=== PATIENT | female | born 2000 | race Caucasian/White ===

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

== ENCOUNTER 2018-12-04 09:30 | Emergency (ER) | payer OTHER ==
[2018-12-04 09:36] VITALS: RESP 18
--- NOTE | 2018-12-04 10:09 | ED ---
Female Urogenital HPI - General Chief complaint: Vaginal Bleeding Stated complaint: 16 wks preg/vag bleeding Time Seen by Provider: 12/04/18 09:37 Source: patient, RN notes reviewed, old records reviewed Mode of arrival: ambulatory Limitations: no limitations - History of Present Illness Initial comments: Patient is a 18-year-old female, . She is approximately 16 weeks . She presents today for complaints of vaginal bleeding. She reports she's had a history of gestational diabetes and preeclampsia on her last . Patient states that her DIRECTOR INTERNAL AUDIT is Dr. Zavala. Patient states that she started to have some bleeding and has had fell approximately one pad since this morning. Patient complains of lower abdominal and back cramping pain. - Related Data Home Medications Medication Instructions Recorded Confirmed Crq-Xvsn-Yvizv Acid 1 cap PO DAILY 12/04/18 12/04/18 [-U Capsule (formulary)] Previous Rx's Medication Instructions Recorded Cephalexin [Keflex] 500 mg PO Q6HR 3 Days #12 cap 12/04/18 Allergies Allergy/AdvReac Type Severity Reaction Status Date / Time No Known Allergies Allergy Verified 12/04/18 10:40 Review of Systems ROS Statement: Those systems with pertinent positive or pertinent negative responses have been documented in the HPI. ROS Other: All systems not noted in ROS Statement are negative. Past Medical History Past Medical History: Asthma Additional Past Medical History / Comment(s): TMJ History of Any Multi-Drug Resistant Organisms: None Reported Past Surgical History: Ear Surgery Additional Past Surgical History / Comment(s): "tubes in ears at 9 months old" Past Psychological History: Anxiety, Depression Smoking Status: Never smoker Past Alcohol Use History: None Reported Past Drug Use History: None Reported General Exam - General Exam Comments Initial Comments: Patient is a 18-year-old female. Alert and oriented 3. No distress. Limitations: no limitations General appearance: alert, in no apparent distress Head exam: Present: atraumatic, normocephalic, normal inspection Eye exam: Present: normal appearance, PERRL, EOMI. Absent: scleral icterus, conjunctival injection, periorbital swelling ENT exam: Present: normal exam, mucous membranes moist Neck exam: Present: normal inspection. Absent: tenderness, meningismus, lymph adenopathy Respiratory exam: Present: normal lung sounds bilaterally. Absent: respiratory distress, wheezes, rales, rhonchi, stridor Cardiovascular Exam: Present: regular rate, normal rhythm, normal heart sounds. Absent: systolic murmur, diastolic murmur, rubs, gallop, clicks GI/Abdominal exam: Present: soft, normal bowel sounds. Absent: distended, tenderness, guarding, rebound, rigid External exam: Present: normal external exam Speculum exam: Present: vaginal bleeding ( reddish brown vaginal discharge.). Absent: normal speculum exam, vaginal discharge By manual exam: Present: normal by manual exam. Absent: cervical motion tenderness Extremities exam: Present: normal inspection, full ROM, normal capillary refill. Absent: tenderness, pedal edema, joint swelling, calf tenderness Back exam: Present: normal inspection Neurological exam: Present: alert, oriented X3, CN II-XII intact Psychiatric exam: Present: normal affect, normal mood Course Vital Signs 12/04/18 09:33 Temperature 98.0 F Pulse Rate 111 H Respiratory 18 Rate Blood Pressure 135/84 O2 Sat by Pulse 99 Oximetry - Reevaluation(s) Reevaluation #1: 12/04/18 12:31 Discussed the case with Dr. Wagoner at this time. Patient should be on modified bedrest. We'll put the Patient on Keflex for small UTI. Patient follows up tomorrow with Dr. zavala Medical Decision Making - Medical Decision Making 20-year-old female, . She is approximately 17 weeks . She presents today with vaginal bleeding times one day. Not after intercourse. On exam she does have some brown blood noted in vaginal vault. Cervix appears closed. No adnexal tenderness. Urinalysis did show some signs of infection. We'll start the Patient on Keflex. Ultrasound shows evidence of 17 weeks intrauterine with viable heart rate. There is evidence of a possible small subchorionic bleed measuring presenting August 5 0.7 cm. Patient case discussed with Dr. Blandon. She'll follow-up with her tomorrow in the office. On bedrest and placed on antibiotics for UTI. All questions answered return parameters were discussed. - Lab Data Result diagrams: 12/04/18 10:25 12/04/18 10:25 Lab Results 12/04/18 12/04/18 12/04/18 Range/Units 10:25 10:25 10:25 WBC (4.0-11.0) k/uL RBC (3.80-5.40) m/uL Hgb (11.4-16.0) gm/dL Hct (34.0-46.0) % MCV (80.0-100.0) fL MCH (25.0-35.0) pg MCHC (31.0-37.0) g/dL RDW (11.5-15.5) % Plt Count (150-450) k/uL Neutrophils % % Lymphocytes % % Monocytes % % Eosinophils % % Basophils % % Neutrophils # (1.3-7.7) k/uL Lymphocytes # (1.0-4.8) k/uL Monocytes # (0-1.0) k/uL Eosinophils # (0-0.7) k/uL Basophils # (0-0.2) k/uL PT (9.0-12.0) sec INR (<1.2) APTT (22.0-30.0) sec Sodium (137-145) mmol/L Potassium (3.5-5.1) mmol/L Chloride (98-107) mmol/L Carbon Dioxide (22-30) mmol/L Anion Gap mmol/L BUN (7-17) mg/dL Creatinine (0.52-1.04) mg/dL Est GFR (CKD-EPI)AfAm (>60 ml/min/1.73 sqM) Est GFR (CKD-EPI)NonAf (>60 ml/min/1.73 sqM) Glucose (74-99) mg/dL Calcium (8.4-10.2) mg/dL Urine Color Yellow Urine Appearance Cloudy H (Clear) Urine pH 6.0 (5.0-8.0) Ur Specific [place] 1.029 (1.001-1.035) Urine Protein Trace H (Negative) Urine Glucose (UA) Negative (Negative) Urine Ketones Negative (Negative) Urine Blood Moderate H (Negative) Urine Nitrite Negative (Negative) Urine Bilirubin Negative (Negative) Urine Urobilinogen 2.0 (<2.0) mg/dL Ur Leukocyte Esterase Large H (Negative) Urine RBC 1 (0-5) /hpf Urine WBC 19 H (0-5) /hpf Ur Squamous Epith Cells 18 H (0-4) /hpf Urine Bacteria Few H (None) /hpf Urine Mucus Many H (None) /hpf Trichomonas Ag (Rapid) Negative (Negative) Blood Type O Positive Blood Type Recheck [facility] 12/04/18 12/04/18 12/04/18 Range/Units 10:25 10:25 10:25 WBC 9.4 (4.0-11.0) k/uL RBC 4.38 (3.80-5.40) m/uL Hgb 12.6 (11.4-16.0) gm/dL Hct 36.5 (34.0-46.0) % MCV 83.3 (80.0-100.0) fL MCH 28.7 (25.0-35.0) pg MCHC 34.4 (31.0-37.0) g/dL RDW 13.7 (11.5-15.5) % Plt Count 305 (150-450) k/uL Neutrophils % 74 % Lymphocytes % 19 % Monocytes % 4 % Eosinophils % 1 % Basophils % 0 % Neutrophils # 6.9 (1.3-7.7) k/uL Lymphocytes # 1.8 (1.0-4.8) k/uL Monocytes # 0.4 (0-1.0) k/uL Eosinophils # 0.1 (0-0.7) k/uL Basophils # 0.0 (0-0.2) k/uL PT 9.3 (9.0-12.0) sec INR 0.8 (<1.2) APTT 23.9 (22.0-30.0) sec Sodium 138 (137-145) mmol/L Potassium 3.7 (3.5-5.1) mmol/L Chloride 108 H (98-107) mmol/L Carbon Dioxide 23 (22-30) mmol/L Anion Gap 7 mmol/L BUN 8 (7-17) mg/dL Creatinine 0.39 L (0.52-1.04) mg/dL Est GFR (CKD-EPI)AfAm >90 (>60 ml/min/1.73 sqM) Est GFR (CKD-EPI)NonAf >90 (>60 ml/min/1.73 sqM) Glucose 77 (74-99) mg/dL Calcium 9.1 (8.4-10.2) mg/dL Urine Color Urine Appearance (Clear) Urine pH (5.0-8.0) Ur Specific Whit[place] (1.001-1.035) Urine Protein (Negative) Urine Glucose (UA) (Negative) Urine Ketones (Negative) Urine Blood (Negative) Urine Nitrite (Negative) Urine Bilirubin (Negative) Urine Urobilinogen (<2.0) mg/dL Ur Leukocyte Esterase (Negative) Urine RBC (0-5) /hpf Urine WBC (0-5) /hpf Ur Squamous Epith Cells (0-4) /hpf Urine Bacteria (None) /hpf Urine Mucus (None) /hpf Trichomonas Ag (Rapid) (Negative) Blood Type Blood Type Recheck - Radiology Data Radiology results: report reviewed Single viable and she had her with ultrasound age of 17 weeks and 0 days. Delivery date 05/14/2019. Fundal region near the tip of the placenta possible membrane or [place] marginal area of fluid representing 3.3 cm in length and 0.7 cm in depth. Disposition Clinical Impression: UTI in , Subchorionic bleed Disposition: HOME SELF-CARE Condition: Good Instructions (If sedation given, give patient instructions): Threatened Miscarriage (ED) Additional Instructions: Patient should be on bed rest except for getting up to go to the bathroom. Patient should have follow-up with Dr. Zavala tomorrow. Return to the emergency department if any alarming signs or symptoms occur. Prescriptions: Cephalexin [Keflex] 500 mg PO Q6HR 3 Days #12 cap Is patient prescribed a controlled substance at d/c from ED?: No Referrals: Conor Mancini MD [Primary Care Provider] - 1-2 days Kellie Zavala DO [Doctor of Osteopathic Medicine] - 1-2 days Time of Disposition: 12:33
[2018-12-04 10:38] LABS: Basophils % (A) 0 %; Eosinophils # (A) 0.1 k/uL (0-0.7); Eosinophils % (A) 1 %; HCT 36.5 % (34.0-46.0); HGB 12.6 gm/dL (11.4-16.0); Lymphocytes # (A) 1.8 k/uL (1.0-4.8); Lymphocytes % (A) 19 %; MCH 28.7 pg (25.0-35.0); MCHC 34.4 g/dL (31.0-37.0); MCV 83.3 fL (80.0-100.0); Monocytes # (A) 0.4 k/uL (0-1.0); Monocytes % (A) 4 %; Neutrophils # (A) 6.9 k/uL (1.3-7.7); Neutrophils % (A) 74 %; Platelet Count 305 k/uL (150-450); RBC 4.38 m/uL (3.80-5.40); RDW 13.7 % (11.5-15.5); WBC 9.4 k/uL (4.0-11.0)
[2018-12-04 10:47] LABS: Appearance,Urine Cloudy (Clear); Bacteria,Urine Few /hpf; Bilirubin,Urine Negative (Negative); Blood,Urine Moderate (Negative); Color,Urine Yellow; Glucose,Urine (UA) Negative (Negative); Ketones,Urine Negative (Negative); Leukocyte Esterase,Urine Large (Negative); Mucus,Urine Many /hpf; Nitrite,Urine Negative (Negative); Protein,Urine Trace (Negative); RBC,Urine 1 /hpf (0-5); Specific Gravity,Urine 1.029 (1.001-1.035); Squamous Epithelial Cell,Urine 18 /hpf (0-4); WBC,Urine 19 /hpf (0-5)
[2018-12-04 10:51] LABS: African American GFR (CKD) >90 (>60 ml/min/1.73 sqM); Anion Gap 7 mmol/L; Blood Urea Nitrogen 8 mg/dL (7-17); Calcium 9.1 mg/dL (8.4-10.2); Carbon Dioxide 23 mmol/L (22-30); Chloride 108 mmol/L (98-107); Glucose 77 mg/dL (74-99); INR 0.8 (<1.2); Partial Thromboplastin Time 23.9 sec (22.0-30.0); Potassium 3.7 mmol/L (3.5-5.1); Prothrombin Time 9.3 sec (9.0-12.0); Sodium 138 mmol/L (137-145)
--- NOTE | 2018-12-04 11:29 | US ---
EXAMINATION TYPE: US OB >= 14 wk fetus DATE OF EXAM: 12/04/2018 COMPARISON: None CLINICAL HISTORY: Pain, bleeding Patient states having spotting since today, TECHNIQUE: Transabdominal (TA) GESTATIONAL AGE / DATING Physician Established: (16 weeks/1 days) EDC: 05/20/2019 Dates by Current Scan: (17 weeks/0 days) EDC: 05/14/2019 SURVEY IUP: Single PLACENTA: Posterior PREVIA: No Previa LYDIA: 11.8 cm Normal CERVICAL LENGTH (transabdominal: norm > 3.0cm): 3.4 cm BIOMETRY PRESENTATION: Vertex BPD: 3.7 cm 17 weeks / 2 days HC: 13.4 cm 16 weeks / 6 days AC: 11.3 cm 17 weeks / 0 days FL: 2.2 cm 16 weeks / 3 days ESTIMATED WEIGHT IN GRAMS: 169.9 grams ESTIMATED WEIGHT IN LBS/OZ: 0 lbs. 6 oz. WEIGHT PERCENTAGE BASED ON ESTABLISHED DATES: 84.3% HC/AC: 1.2 Normal FL/AC: 16.2 Normal HEART RATE: 148 bpm RHYTHM: Normal Single live IUP measuring 17 weeks 0 days. In fundal region near tip of placenta, possible membrane o r small marginal area of fluid present measuring 3.3 cm in length by 0.7 cm in depth IMPRESSION: Single viable intrauterine corresponding to ultrasound age 17 weeks 0 days with estimated d elivery 05/14/2019. Placental margin abnormality is described.
[2018-12-04] MEDS ORDERED: CEPHALEXIN 500MG STARTER PACK 4 CAP BTL PO STA (12:35)
[2018-12-04 12:48] VITALS: BP 130/77; PULSE 96; TEMP 99.1
[2018-12-05 13:36] LABS: C. trachomatis,PCR Negative (Neg,Equiv); Chlamydia trachomatis Source Vagina
[2018-12-05 13:42] LABS: N. gonorrhoeae,PCR Negative (Neg,Equiv); Neisseria Source Vagina
== END 2018-12-04 12:49 | disposition home or self-care (01) ==
LOC: EC 09:30
DX: O20.8 Other hemorrhage in early pregnancy (principal); O23.42 Unspecified infection of urinary tract in pregnancy, second trimester; Z3A.17 17 weeks gestation of pregnancy
CPT/HCPCS: 36415; 76805; 80048; 81001; 85025; 85610; 85730; 86900; 86901; 87070; 87205; 87491; 87591; 87808; 99284

== ENCOUNTER 2019-04-01 14:40 | Outpatient (CLI) | payer OTHER ==
[2019-04-01 15:04] LABS: Glucose,Whole Blood 80 mg/dL (75-99)
[2019-04-01] MEDS: LACTATED RINGERS 1,000 ML IV ONE ×2 (15:35→16:23)
[2019-04-01 15:39] LABS: Amorphous Sediment,Urine Rare /hpf; Appearance,Urine Clear (Clear); Bacteria,Urine Occasional /hpf; Bilirubin,Urine Negative (Negative); Blood,Urine Negative (Negative); Color,Urine Yellow; Glucose,Urine (UA) Negative (Negative); Ketones,Urine 1+ (Negative); Leukocyte Esterase,Urine Moderate (Negative); Mucus,Urine Occasional /hpf; Nitrite,Urine Negative (Negative); Protein,Urine Negative (Negative); RBC,Urine 1 /hpf (0-5); Specific Gravity,Urine 1.013 (1.001-1.035); Squamous Epithelial Cell,Urine 2 /hpf (0-4); Urobilinogen,Urine <2.0 mg/dL (<2.0); WBC,Urine 11 /hpf (0-5)
[2019-04-01 15:54] LABS: Basophils % (A) 0 %; Eosinophils % (A) 0 %; HGB 11.4 gm/dL (11.4-16.0); Hypochromasia Slight; Lymphocytes # (A) 0.8 k/uL (1.0-4.8); Lymphocytes % (A) 5 %; MCH 26.2 pg (25.0-35.0); MCHC 32.4 g/dL (31.0-37.0); MCV 80.8 fL (80.0-100.0); Mean Platelet Volume 7.2; Monocytes # (A) 0.7 k/uL (0-1.0); Monocytes % (A) 4 %; Neutrophils # (A) 14.9 k/uL (1.3-7.7); Neutrophils % (A) 88 %; Platelet Count 278 k/uL (150-450); Poikilocytosis Slight; RBC 4.33 m/uL (3.80-5.40); RDW 13.5 % (11.5-15.5); WBC 16.9 k/uL (4.0-11.0)
[2019-04-01 16:05] LABS: ALT 13 U/L (9-52); AST 17 U/L (14-36); African American GFR (CKD) >90 (>60 ml/min/1.73 sqM); Albumin 3.4 g/dL (3.5-5.0); Alkaline Phosphatase 150 U/L (38-126); Anion Gap 7 mmol/L; Blood Urea Nitrogen 5 mg/dL (7-17); Calcium 9.1 mg/dL (8.4-10.2); Carbon Dioxide 21 mmol/L (22-30); Chloride 107 mmol/L (98-107); Glucose 72 mg/dL (74-99); Non-African American GFR(CKD) >90 (>60 ml/min/1.73 sqM); Potassium 3.8 mmol/L (3.5-5.1); Sodium 135 mmol/L (137-145); Total Bilirubin 0.6 mg/dL (0.2-1.3); Total Protein 6.6 g/dL (6.3-8.2)
--- NOTE | 2019-04-01 16:41 | US ---
EXAMINATION TYPE: US OB BPP wo non-stress DATE OF EXAM: 04/01/2019 COMPARISON: NONE CLINICAL HISTORY: Decreased FM. maternal tachycardia EXAM PERFORMED: Transabdominal (TA) BPP PARAMETERS: PRESENTATION: Vertex LIE: Longitudinal?? HEART RATE: 153 bpm RHYTHM: Normal LYDIA: 20.3cm DIAPHRAGM IMAGED: yes BPP SCORIN. Breathin (1 episode of breathing of 30 second duration in 30 minutes of scanning time) 2. Movement: 2 (at least 3 discrete body movements in 30 minutes) 3. Tone: 2 (1 episode of active flexion/extension of limb) 4. LYDIA: 2 (LYDIA index > 5cm) TOTAL SCORE: 6 / 8 was in room for a total of 26 minutes, ended exam at 17:11 after not being able to achieve br eathing IMPRESSION: No breathing movements were seen during that time of the exam. There is normal amniotic fluid. Biophysical profile score is 6.
--- NOTE | 2019-04-01 16:45 | US ---
EXAMINATION TYPE: US OB >= 14 wk fetus DATE OF EXAM: 04/01/2019 COMPARISON: None CLINICAL HISTORY: 18 year-old female Complete; Decreased movement. Maternal tachycardia TECHNIQUE: OBTA FINDINGS: GESTATIONAL AGE / DATING Physician Established: (33 weeks/0 days) EDC: 05/20/2019 Dates by LMP: LMP unknown Dates by First Scan: (33 weeks/6 days) EDC: 05/14/2019 Dates by Current Scan: (36 weeks/1 days) (2 weeks 2 days more growth than expected as compared to 12/04) EDC: 04/28/2019 SURVEY IUP: Single PLACENTA: Posterior PREVIA: Unable to determine. LYDIA: 19.6 cm Normal CERVICAL LENGTH (transabdominal: norm > 3.0cm): not seen due to head shadowing and non distended blad jairo BIOMETRY PRESENTATION: Vertex LIE: Longitudinal BPD: 8.9 cm 36 weeks / 1 days HC: 32.5 cm 37 weeks / 0 days AC: 31.5 cm 35 weeks / 4 days FL: 6.9 cm 35 weeks / 5 days ESTIMATED WEIGHT IN GRAMS: 2751 grams ESTIMATED WEIGHT IN LBS/OZ: 6 lbs. 1 oz. WEIGHT PERCENTAGE BASED ON ESTABLISHED DATES: 98% HC/AC: 1.0 Normal FL/AC: 22 Normal HEART RATE: 153 bpm RHYTHM: Normal MATERNAL WALL MEASUREMENT: 4.0 cm from skin to anterior uterine wall (if exam limited due to body hab itus). Bell Staff notes: Large habitus which made sound beam penetration difficult IMPRESSION: 1. Single live intrauterine with the established gestational age of 33 weeks 0 days. Curren t ultrasound biometry places the child at 36 weeks 1 day. There has been 2 weeks 2 days more growth t monson expected as compared to 12/04/2018. 2. EFW currently at the 98th percentile. Continued follow-up recommended to exclude LGA or early macr osomia. 3. Additional follow-up as indicated: unable to clearly exclude marginal placenta previa on the provi ded images. Unable to assess cervical length due to shadowing from the baby's head. 4. Note that anatomy was not assessed on this emergent exam.
[2019-04-01 17:42] VITALS: BP 135/77; TEMP 98.2
[2019-04-01 17:43] VITALS: PULSE 126; RESP 16
--- NOTE | 2019-05-01 10:18 | P.MSEPDOC ---
Presenting Problems - Arrival Data Date of Arrival on Unit: 04/01/19 Time of Arrival on Unit: 14:40 Mode of Transport: Portable - Complaint OB-Reason for Admission/Chief Complaint: Syncope/Fainting Spell Medical History - Information : 3 Para: 1 Term: 1 : 0 Abortions: Spontaneous or Elective: 1 Number of Living Children: 1 - Gestational Age Gestational Age by DELGADO (wks/days): 33 Weeks and 0 Days Review of Systems - Review of Systems Constitutional: No problems Breast: No problems ENT: No problems Cardiovascular: No problems Respiratory: CLAUDIA Gastrointestinal: No problems Genitourinary: No problems Musculoskeletal: No problems Neurological: Fainting Skin: No problems Vital Signs - Temperature Temperature: 98.2 F Temperature Source: Oral - Pulse Right Sitting Pulse Oximetery Pulse Rate: 126 Pulse Assessment Method: Pulse Oximetry - Respirations Respiratory Rate: 16 Oxygen Delivery Method: Room Air O2 Sat by Pulse Oximetry: 100 - Blood Pressure Right Arm Sitting Blood Pressure: 135/77 Blood Pressure Mean: 96 Blood Pressure Source: Automatic Cuff Medical Screen Scoring (Pre) - Cervical Exam Dilation: Exam Deferred Effacement: Exam Deferred Membranes: Intact - Uterine Contractions Frequency: N/A Duration: N/A Intensity: N/A - Maternal Vital Signs Maternal Temperature: N/A Maternal Blood Pressure: N/A Signs of Preeclampsia: N/A Maternal Respirations: N/A - Maternal Trauma Maternal Trauma: N/A - Assessment - Baby A Baseline FHR: 160 Heart Rate - NICHD Category: Category I (Normal) = 0 NST: Reactive Position: N/A Station: N/A - Total Score - Baby A Total Score - Baby A: 0 - Total Score - Baby B Total Score - Baby B: 0 - Total Score - Baby C Total Score - Baby C: 0 - Level of Risk - Baby A Level of Risk - Baby A: Low (0-5) - Level of Risk - Baby B Level of Risk - Baby B: Low (0-5) - Level of Risk - Baby C Level of Risk - Baby C: Low (0-5) Physician Notification (Pre) - Physician Notified Physician Notified Date: 04/01/19 Physician Notified Time: 15:23 New Order Received: Yes - Notification Comment Comment: Grady gates\Dr. Carrero, advsd of pts c/o, 33 0/7, tachycardia, hx of tachycardia, takes metropolol daily, vomitted x 1, has not ate/drank today; rec'd orders for IV hydration, CBC, CMP, UA and Ultrasound. Physician Notification (Post) - Physician Notified Physician Notified Date: 04/01/19 Physician Notified Time: 17:20 Physician/Practitioner Notified:: Alise Spoke With: Alise New Order Received: Yes - Notification Comment Comment: Pt reports feeling less SOB, pulse down from 150-160 to 120-130, labs and US reviewed. Pt to be d/c home, off work today and tomorrow, follow up in office Th/Fri. Disposition - Disposition OB Disposition: Discharge to home, Written follow up instructions reviewed Discharge Date: 04/01/19 Discharge Time: 17:30 I agree with the RN Medical Screening Exam: Yes Risk & Benefit of care provided described in d/c instruction: Yes Diagnosis: OTHER SPECIFIED COMPLICATIONS OF LABOR AND DELIVERY
== END 2019-04-01 17:30 | disposition home or self-care (01) ==
LOC: FBPOP 14:40
PROVIDERS: ATTEND Obstetrics & Gynecology Obstetrics
DX: O75.89 Other specified complications of labor and delivery (principal); Z3A.33 33 weeks gestation of pregnancy
CPT/HCPCS: 59025; 76805; 76819; 80053; 81001; 85025; 96360; 96361; 99213; 99214

== ENCOUNTER 2019-04-18 12:58 | Outpatient (CLI) | payer OTHER ==
[2019-04-18] MEDS ORDERED: LACTATED RINGERS 1,000 ML IV SCH ×2 (13:30→15:45)
[2019-04-18 14:09] LABS: ALT 8 U/L (4-34); AST 17 U/L (14-36); African American GFR (CKD) >90 (>60 ml/min/1.73 sqM); Albumin 2.9 g/dL (3.5-5.0); Alkaline Phosphatase 123 U/L (38-126); Anion Gap 8 mmol/L; Blood Urea Nitrogen 7 mg/dL (7-17); Carbon Dioxide 21 mmol/L (22-30); Chloride 108 mmol/L (98-107); Glucose 104 mg/dL (74-99); Non-African American GFR(CKD) >90 (>60 ml/min/1.73 sqM); Potassium 3.7 mmol/L (3.5-5.1); Sodium 137 mmol/L (137-145); Total Bilirubin 0.5 mg/dL (0.2-1.3); Total Protein 5.8 g/dL (6.3-8.2)
[2019-04-18 15:03] LABS: Appearance,Urine Cloudy (Clear); Bacteria,Urine Many /hpf; Bilirubin,Urine Negative (Negative); Blood,Urine Negative (Negative); Color,Urine Yellow; Glucose,Urine (UA) Negative (Negative); Ketones,Urine Negative (Negative); Leukocyte Esterase,Urine Large (Negative); Mucus,Urine Many /hpf; Nitrite,Urine Negative (Negative); Protein,Urine Trace (Negative); RBC,Urine 3 /hpf (0-5); Specific Gravity,Urine 1.024 (1.001-1.035); Squamous Epithelial Cell,Urine 10 /hpf (0-4); WBC,Urine 21 /hpf (0-5)
[2019-04-18] MEDS ORDERED: METOPROLOL TARTRATE 25 MG TAB PO STA (15:45)
[2019-04-18 21:19] VITALS: BP 124/92; PULSE 150; RESP 18; TEMP 98.4
== END 2019-04-18 17:30 | disposition home or self-care (01) ==
LOC: FBPOP 12:58
PROVIDERS: ATTEND Obstetrics & Gynecology Obstetrics
DX: O99.89 Other specified diseases and conditions complicating pregnancy, childbirth and the puerperium (principal); R00.0 Tachycardia, unspecified; Z3A.00 Weeks of gestation of pregnancy not specified
CPT/HCPCS: 59025; 80053; 81001; 96360; 96361; 99214

== ENCOUNTER 2019-05-02 21:35 | Outpatient (CLI) | payer OTHER ==
[2019-05-02 23:03] VITALS: BP 133/83; PULSE 120; RESP 18; TEMP 97.6
--- NOTE | 2019-05-03 11:03 | P.MSEPDOC ---
Presenting Problems - Arrival Data Date of Arrival on Unit: 05/02/19 Time of Arrival on Unit: 21:35 Mode of Transport: Ambulatory - Complaint OB-Reason for Admission/Chief Complaint: Decreased Movement, Other Medical History - Information : 3 Para: 1 Term: 1 : 0 Abortions: Spontaneous or Elective: 1 Number of Living Children: 1 - Gestational Age Gestational Age by DELGADO (wks/days): 37 Weeks and 3 Days Review of Systems - Review of Systems Constitutional: No problems Breast: No problems ENT: Cough Cardiovascular: No problems Respiratory: Wheezing Gastrointestinal: No problems Genitourinary: No problems Musculoskeletal: No problems Neurological: No problems Skin: No problems Vital Signs - Temperature Temperature: 97.6 F Temperature Source: Temporal Artery Scan - Pulse Right Brachial Pulse Rate: 120 Pulse Assessment Method: Automatic Cuff - Respirations Respiratory Rate: 18 Oxygen Delivery Method: Room Air O2 Sat by Pulse Oximetry: 97 - Blood Pressure Right Arm Blood Pressure: 133/83 Blood Pressure Mean: 99 Blood Pressure Source: Automatic Cuff Medical Screen Scoring (Pre) - Cervical Exam Dilation: Exam Deferred Effacement: Exam Deferred Membranes: Intact - Uterine Contractions Frequency: N/A - Maternal Vital Signs Maternal Temperature: N/A Maternal Blood Pressure: N/A Signs of Preeclampsia: N/A Maternal Respirations: N/A - Maternal Trauma Maternal Trauma: N/A - Assessment - Baby A Baseline FHR: 140 Heart Rate - NICHD Category: Category I (Normal) = 0 NST: Reactive - Total Score - Baby A Total Score - Baby A: 0 - Total Score - Baby B Total Score - Baby B: 0 - Total Score - Baby C Total Score - Baby C: 0 - Level of Risk - Baby A Level of Risk - Baby A: Low (0-5) - Level of Risk - Baby B Level of Risk - Baby B: Low (0-5) - Level of Risk - Baby C Level of Risk - Baby C: Low (0-5) Physician Notification (Pre) - Physician Notified Physician Notified Date: 05/02/19 Physician Notified Time: 22:30 New Order Received: Yes - Notification Comment Comment: RN spoke with Dr. Arreola. Reported that patient had a reactive NST after. close to 40 minutes and with position changes. Patient has bilateral chest tightness and. audible wheeze. Patient currently on two inhalers from home and robitussin with no. relief. Dr. Arreola would like patient to be seen in ER. Patient updated on plan of. care and is in agreement. Disposition - Disposition OB Disposition: Transfer to other dept./facility Transferred to:: ER Discharge Date: 05/02/19 Discharge Time: 22:40 I agree with the RN Medical Screening Exam: Yes Risk & Benefit of care provided described in d/c instruction: Yes Diagnosis: RELATED CONDITIONS, UNSPECIFIED, THIRD TRIMESTER
== END 2019-05-02 22:40 ==
LOC: FBPOP 21:35
PROVIDERS: ATTEND Obstetrics & Gynecology
DX: O26.93 Pregnancy related conditions, unspecified, third trimester (principal); Z3A.37 37 weeks gestation of pregnancy
CPT/HCPCS: 59025; 99213

== ENCOUNTER 2019-05-02 22:43 | Emergency (ER) | payer OTHER ==
[2019-05-02 22:50] VITALS: RESP 18; TEMP 97.8
[2019-05-02] MEDS ORDERED: IPRATROPIUM-ALBUTEROL 3 ML NEB INHALATION STA (23:27)
[2019-05-02] MEDS ORDERED: predniSONE 20 MG TAB PO STA (23:27)
--- NOTE | 2019-05-03 00:26 | ED ---
URI HPI - General Chief Complaint: Upper Respiratory Infection Stated Complaint: cough/congestion Time Seen by Provider: 05/02/19 23:00 Source: patient Limitations: no limitations - History of Present Illness Initial Comments: Leatha is a 18-year-old female currently 37 weeks gestation who presents the ER from labor and delivery for evaluation of wheezing and URI symptoms. Patient has no complaints can feel the baby moving was evaluated on labor and delivery and they recommended trans-her back to the ER for evaluation of URI. Patient reports she has a history of reactive airway disease and asthma. She occasionally needs breathing treatments. She reports she's used some at home with minimal improvement which prompted her to the ER for further evaluation. P atient reports she's had nonproductive cough wheezing no fevers. Patient shortness of breath is exacerbated by the fact that she is term - Related Data Home Medications Medication Instructions Recorded Confirmed Jev-Oiyq-Ftyqx Acid 1 cap PO DAILY 12/04/18 05/02/19 [-U Capsule (formulary)] Iron 18 mg PO DAILY 04/01/19 05/02/19 Metoprolol Succinate [Kapspargo 25 mg PO BID 04/01/19 05/02/19 Sprinkle] Albuterol Inhaler [Ventolin Hfa 1 - 2 puff INHALATION RT-Q6H PRN 05/02/19 05/02/19 Inhaler] Beclomethasone Dipropionate [Qvar 1 puff INHALATION DIRECTED 05/02/19 05/02/19 40 mcg Redihaler] Previous Rx's Medication Instructions Recorded Ipratropium-Albuterol Nebulize 3 ml INHALATION Q6H #30 neb 05/03/19 [Duoneb 0.5 mg-3 mg/3 ml Soln] predniSONE [Deltasone] 40 mg PO DAILY 5 Days #10 tablet 05/03/19 Allergies Allergy/AdvReac Type Severity Reaction Status Date / Time No Known Allergies Allergy Verified 05/02/19 22:50 Review of Systems ROS Statement: Those systems with pertinent positive or pertinent negative responses have been documented in the HPI. ROS Other: All systems not noted in ROS Statement are negative. Past Medical History Past Medical History: Asthma Additional Past Medical History / Comment(s): TMJ History of Any Multi-Drug Resistant Organisms: None Reported Past Surgical History: Ear Surgery Additional Past Surgical History / Comment(s): "tubes in ears at 9 months old" Past Psychological History: Anxiety, Depression Smoking Status: Never smoker General Exam - General Exam Comments Initial Comments: Physical Exam GENERAL: Patient is well-developed and well-nourished. Patient is nontoxic and well- hydrated and is in no distress. HENT: Normocephalic, Atraumatic. EYES: PERRL, EOMI PULMONARY: Mild expiratory wheezing in all lung yadav Decreased diaphragmatic excursion secondary to CARDIOVASCULAR: There is a regular rate and rhythm without any murmurs gallops or rubs. ABDOMEN: Gravid SKIN: Skin is clear with no lesions or rashes and otherwise unremarkable. : Deferred NEUROLOGIC: Patient is alert and oriented x3. Moving all extremities spontaneously MUSCULOSKELETAL: Normal extremities with adequate strength and full range of motion. No lower extremity swelling or edema. No calf tenderness. PSYCHIATRIC: Normal psychiatric evaluation. Limitations: no limitations Course Vital Signs 05/02/19 05/03/19 05/03/19 22:47 00:28 00:37 Temperature 97.8 F Pulse Rate 118 H 108 H 100 Respiratory 18 Rate Blood Pressure 133/94 O2 Sat by Pulse 98 Oximetry 05/03/19 00:52 Temperature Pulse Rate 111 H Respiratory 18 Rate Blood Pressure 133/85 O2 Sat by Pulse 98 Oximetry Medical Decision Making - Medical Decision Making The patient was seen and evaluated history is obtained from the patient is a 37 week female presenting with wheezing Breathing treatment was ordered. Labs were ordered. Patient feeling much better after breathing treatment. Was negative for herself and her mother. Discussed possible chest x-ray however patient has improved breath sounds bilaterally after breathing treatment no fever no concern for pneumonia on clini tessy exam therefore patient's comfortable foregoing chest x-ray being discharged home with albuterol and steroids. All questions pertaining care were answered close return parameters were discussed importance of hydration was stressed and the patient was discharged home stable condition she will follow up with her Scale Balancer further care. - Lab Data Lab Results 05/02/19 Range/Units 23:52 Influenza Type A RNA Not Detected (Not Detectd) Influenza Type B (PCR) Not Detected (Not Detectd) Disposition Clinical Impression: Acute upper respiratory infection Disposition: HOME SELF-CARE Condition: Stable Instructions (If sedation given, give patient instructions): Upper Respiratory Infection (ED) Prescriptions: predniSONE [Deltasone] 40 mg PO DAILY 5 Days #10 tablet Ipratropium-Albuterol Nebulize [Duoneb 0.5 mg-3 mg/3 ml Soln] 3 ml INHALATION Q6H #30 neb Is patient prescribed a controlled substance at d/c from ED?: No Referrals: Conor Mancini MD [Primary Care Provider] - 1-2 days
[2019-05-03 00:53] VITALS: BP 133/85; PULSE 111
== END 2019-05-03 01:41 | disposition home or self-care (01) ==
LOC: EC 22:43
DX: O99.513 Diseases of the respiratory system complicating pregnancy, third trimester (principal); J06.9 Acute upper respiratory infection, unspecified; J45.909 Unspecified asthma, uncomplicated; Z3A.37 37 weeks gestation of pregnancy; Z79.899 Other long term (current) drug therapy
CPT/HCPCS: 94640; 87502; 99283; J7512

== ENCOUNTER 2019-05-13 06:00 | Inpatient (IN) | payer OTHER ==
[2019-05-13 06:29] VITALS: RESP 16
[2019-05-13] MEDS: LACTATED RINGERS 1,000 ML IV SCH ×2 (06:30→10:41)
[2019-05-13] MEDS ORDERED: TERBUTALINE 1 MG/ML VIAL SQ PRN (07:08)
[2019-05-13] MEDS ORDERED: LIDOCAINE 0.5% (PF) 5 MG/ML (50 ML SDV) SQ PRN (07:08)
[2019-05-13] MEDS ORDERED: OXYTOCIN 10 UNIT/ML 1 ML VIAL IM PRN (07:08)
[2019-05-13] MEDS ORDERED: CARBOPROST TROMETHAMINE 250 MCG/ML 1 ML AMP IM PRN (07:08)
[2019-05-13] MEDS ORDERED: METHYLERGONOVINE 0.2 MG/ML 1 ML AMP IM PRN (07:08)
[2019-05-13] MEDS ORDERED: OXYTOCIN 30 UNITS/500 ML NS 30 UNIT in SALINE 1 500ML.BAG IV SCH (07:15)
[2019-05-13 07:23] LABS: Basophils # (A) 0.1 k/uL (0-0.2); Basophils % (A) 1 %; Eosinophils # (A) 0.1 k/uL (0-0.7); Eosinophils % (A) 1 %; HCT 31.3 % (34.0-46.0); Hypochromasia Slight; Lymphocytes # (A) 2.4 k/uL (1.0-4.8); Lymphocytes % (A) 22 %; MCH 23.4 pg (25.0-35.0); MCHC 31.4 g/dL (31.0-37.0); Mean Platelet Volume 8.9; Microcytosis Slight; Monocytes # (A) 0.5 k/uL (0-1.0); Monocytes % (A) 4 %; Neutrophils # (A) 7.7 k/uL (1.3-7.7); Neutrophils % (A) 69 %; Platelet Count 301 k/uL (150-450); Poikilocytosis Slight; RDW 14.8 % (11.5-15.5); WBC 11.1 k/uL (4.0-11.0)
[2019-05-13 07:42] LABS: HGB 9.8 gm/dL (11.4-16.0); MCV 74.5 fL (80.0-100.0)
--- NOTE | 2019-05-13 08:00 | P.HPOB ---
History of Present Illness H&P Date: 05/13/19 Chief Complaint: IUP @ 39 0/7 weeks This is a 18-year-old 3 para 1011 at 39 0/7 weeks presents to labor and delivery for elective induction of labor. Patient has been receiving routine care which is been essentially uncomplicated. A arrhythmia was noted during a routine visit and echo was negative. Patient does have a past medical history of asthma and history of pre-[place] with her prior blood pressures of been normal this . On blood work shows a blood type of O+, rubella immune, hepatitis B surface antigen negative, RPR nonreactive, HIV negative, GBS negative. Review of Systems Constitutional: Denies chills, Denies fatigue, Denies fever Ears, nose, mouth and throat: Denies headache Cardiovascular: Reports leg edema Gastrointestinal: Denies nausea, Denies vomiting Genitourinary: Reports Past Medical History Past Medical History: Asthma Additional Past Medical History / Comment(s): TMJ History of Any Multi-Drug Resistant Organisms: None Reported Past Surgical History: Ear Surgery Additional Past Surgical History / Comment(s): "tubes in ears at 9 months old" Past Anesthesia/Blood Transfusion Reactions: No Reported Reaction Past Psychological History: Anxiety, Depression Smoking Status: Never smoker Past Alcohol Use History: None Reported Past Drug Use History: None Reported - Past Family History Mother Family Medical History: Pneumonia Medications and Allergies Home Medications Medication Instructions Recorded Confirmed Type Enw-Rmzv-Sqycd Acid 1 cap PO DAILY 12/04/18 05/13/19 History [-U Capsule (formulary)] Iron 18 mg PO DAILY 04/01/19 05/13/19 History Metoprolol Succinate [Kapspargo 25 mg PO BID 04/01/19 05/13/19 History Sprinkle] Albuterol Inhaler [Ventolin Hfa 1 - 2 puff INHALATION RT-Q6H PRN 05/02/19 05/13/19 History Inhaler] Beclomethasone Dipropionate [Qvar 1 puff INHALATION DIRECTED 05/02/19 05/13/19 History 40 mcg Redihaler] predniSONE [Deltasone] 40 mg PO DAILY 5 Days #10 tablet 05/03/19 05/13/19 Rx Allergies Allergy/AdvReac Type Severity Reaction Status Date / Time No Known Allergies Allergy Verified 05/13/19 06:31 Exam Osteopathic Statement: *. No significant issues noted on an osteopathic structural exam other than those noted in the History and Physical/Consult. 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 Heart has regular rate and rhythm, abdomen is gravid and appropriate for gestational age, positive +1 lower cavity edema is noted. heart tones were noted to be category 1 and she is contra cting every 5 minutes. On cervical exam she is 5/70/-2 station amniotomy is performed and clear fluid was obtained. Results Result Diagrams: 05/13/19 06:30 Abnormal Lab Results - Last 24 Hours (Table) 05/13/19 Range/Units 06:30 WBC 11.1 H (4.0-11.0) k/uL Hgb 9.8 L D (11.4-16.0) gm/dL Hct 31.3 L (34.0-46.0) % MCV 74.5 L D (80.0-100.0) fL MCH 23.4 L (25.0-35.0) pg Assessment and Plan (1) Term Current Visit: Yes Status: Acute Code(s): Z34.90 - ENCNTR FOR SUPRVSN OF NORMAL , UNSP, UNSP TRIMESTER SNOMED Code(s): 55802458 Plan: Patient is admitted to labor and delivery and Pitocin induction of labor was begun per hospital protocol. Patient is offered Stadol versus epidural for analgesia for discomfort in labor, patient declines. Anticipate spontaneous vaginal delivery later this morning.
[2019-05-13] MEDS ORDERED: fentaNYL (PF) 50 MCG/ML 5 ML AMP ONE (10:52)
[2019-05-13] MEDS ORDERED: ROPIVACAINE 5MG/ML 20ML VIAL ONE (10:52)
[2019-05-13] MEDS ORDERED: SODIUM CHLORIDE 0.9% 100 ML BAG ONE (10:52)
[2019-05-13] MEDS ORDERED: ROPIVACAINE 100 MG, fentaNYL (PF) 200 MCG in SODIUM CHLORIDE 0.9% 76 ML EPIDURAL ONE (14:19)
[2019-05-13] MEDS: OXYTOCIN 20 UNITS/1000 ML NS 1,000 ML IV SCH ×2 (15:35→16:33)
[2019-05-13] MEDS ORDERED: BENZOCAINE/MENTHOL SPRAY 1 GM/SPRAY AEROSOL TOPICAL PRN (15:52)
[2019-05-13] MEDS ORDERED: diphenhydrAMINE 50 MG CAP PO PRN (15:52)
[2019-05-13] MEDS ORDERED: SIMETHICONE 80 MG CHEWABLE PO PRN (15:52)
[2019-05-13] MEDS ORDERED: HYDROCORTISONE 2.5% RECTAL CREAM 30 GM TUBE RECTAL PRN (15:52)
[2019-05-13] MEDS ORDERED: diphenhydrAMINE 25 MG CAP PO PRN (15:52)
[2019-05-13] MEDS ORDERED: WITCH HAZEL 1 EACH MED..PAD TOPICAL PRN (15:52)
[2019-05-13] MEDS ORDERED: ZOLPIDEM 5 MG TAB PO PRN (15:52)
[2019-05-13] MEDS ORDERED: LANOLIN CREAM 5 GM TUBE TOPICAL PRN (15:52)
[2019-05-13] MEDS ORDERED: ACETAMINOPHEN TAB 325 MG TAB PO PRN (15:52)
[2019-05-13] MEDS ORDERED: diphenhydrAMINE 50 MG/ML 1 ML VIAL IVP PRN ×2 (15:52)
--- NOTE | 2019-05-13 15:55 | P.PROBDLV ---
Vaginal Delivery Note - . Vaginal Delivery Note: This is a maritza 18-year-old 2 para 1001 at 39 0/7 weeks that presented to labor and delivery for elective induction of labor. Patient was admitted Pitocin induction of labor was started per hospital protocol. Patient underwent amniotomy when she was 5 cm clear fluid was obtained. Patient became uncomfortable and requested epidural placement by the anesthesia . Patient progressed to complete began pushing and had a normal spent taste vaginal delivery of a viable female infant at 1532, weight of 9 lbs. 1 oz. or 4110 g with Apgars of 8 and 9 at one and 5 minutes respect weight. After a two- minute delayed the umbo cord was then doubly clamped and cut the placenta was delivered spontaneously intact with a three-vessel cord being noted. Inspection the patient's vaginal vault a second-degree midline laceration was noted therefore 3-0 repeat was used to repair this defect in the usual fashion. Hemostasis was appreciated the uterus is noted to be firm and below the umbilicus at this time. Rectal exam was performed and found to be normal in nature. Bleeding was noted to be normal in a straight blood loss for this delivery 300 mL. Patient and infant tolerated delivery well and are resting comfortably.
[2019-05-13] MEDS: IBUPROFEN 600 MG TAB PO PRN (20:34)
[2019-05-13] MEDS: SENNOSIDES-DOCUSATE SODIUM 1 EACH TAB PO SCH (20:34)
[2019-05-14 07:29] LABS: Basophils % (A) 0 %; Eosinophils # (A) 0.1 k/uL (0-0.7); Eosinophils % (A) 0 %; HCT 29.7 % (34.0-46.0); Hypochromasia Marked; Lymphocytes % (A) 19 %; MCH 24.5 pg (25.0-35.0); MCHC 30.4 g/dL (31.0-37.0); Mean Platelet Volume 7.3; Monocytes # (A) 0.9 k/uL (0-1.0); Monocytes % (A) 6 %; Neutrophils # (A) 11.5 k/uL (1.3-7.7); Neutrophils % (A) 72 %; Platelet Count 275 k/uL (150-450); Poikilocytosis Slight; RBC 3.68 m/uL (3.80-5.40); RDW 14.2 % (11.5-15.5)
[2019-05-14 07:41] LABS: MCV 80.7 fL (80.0-100.0)
--- NOTE | 2019-05-14 08:19 | P.DS ---
Providers Date of admission: 05/13/19 06:00 Expected date of discharge: 05/14/19 Attending physician: Kellie Carrero Primary care physician: Stated None - Discharge Diagnosis(es) (1) Term Current Visit: Yes Status: Acute (2) Status post normal vaginal delivery Current Visit: Yes Status: Acute (3) Second degree perineal laceration during delivery Current Visit: Yes Status: Acute Hospital Course: This pleasant 18-year-old 2 para 1001 presented to labor and delivery at 39-0/7 weeks for elective induction of labor. Patient was admitted and Pitocin induction of labor was begun per protocol. Patient has had a relatively uncomplicated with the exception of a arrhythmia which was noted on a routine visit echo was found to be normal. Patient progressed through labor amniotomy was performed after regular contractions were noted with Pitocin and clear fluid was obtained. Patient progressed to 7 became uncomfortable requested epidural placement. Epidural was placed by the anesthesia Department without difficulty. Patient progressed to complete began pushing and had a normal spontaneous vaginal delivery of a viable female infant at 1532, weight of 9 lbs. 1 oz. with Apgars of 8 and 9 at one and 5 minutes respectively. Patient did sustain a second-degree midline vaginal laceration which was repaired with 3-0 Rapide in the usual fashion. Patient's course has been uneventful. On this day #1 she is ambulating and voiding without difficulty. She is tolerating a regular diet without nausea or vomiting. She is breast-feeding without difficulty and is requesting a breast pump prescription prior to discharge. She would like discharge home at 24 hours Patient Condition at Discharge: Good Plan - Discharge Summary New Discharge Prescriptions: No Action Nmg-Ctui-Awbhl Acid [-U Capsule (formulary)] 1 cap PO DAILY Metoprolol Succinate [Kapspargo Sprinkle] 25 mg PO BID Iron 18 mg PO DAILY Albuterol Inhaler [Ventolin Hfa Inhaler] 1 - 2 puff INHALATION RT-Q6H PRN PRN Reason: Dyspnea Beclomethasone Dipropionate [Qvar 40 mcg Redihaler] 1 puff INHALATION DIRECTED predniSONE [Deltasone] 40 mg PO DAILY 5 Days #10 tablet Discharge Medication List Lzg-Gzpq-Noldm Acid [-U Capsule (formulary)] 1 cap PO DAILY 12/04/18 [History] Iron 18 mg PO DAILY 04/01/19 [History] Metoprolol Succinate [Kapspargo Sprinkle] 25 mg PO BID 04/01/19 [History] Albuterol Inhaler [Ventolin Hfa Inhaler] 1 - 2 puff INHALATION RT-Q6H PRN 05/02/19 [History] Beclomethasone Dipropionate [Qvar 40 mcg Redihaler] 1 puff INHALATION DIRECTED 05/02/19 [History] predniSONE [Deltasone] 40 mg PO DAILY 5 Days #10 tablet 05/03/19 [Rx] Follow up Appointment(s)/Referral(s): Kellie Carrero DO [Doctor of Osteopathic Medicine] - 4 Weeks Patient Instructions/Handouts: Vaginal Delivery (DC), Vaginal Delivery (GEN) Discharge Disposition: HOME SELF-CARE
[2019-05-14] MEDS: SENNOSIDES-DOCUSATE SODIUM 1 EACH TAB PO SCH (09:22)
[2019-05-14] MEDS: IBUPROFEN 600 MG TAB PO PRN (15:07)
[2019-05-14 16:07] VITALS: BP 139/88; PULSE 97; TEMP 98
== END 2019-05-14 16:44 | disposition home or self-care (01) | DRG 807 ==
LOC: 4FBP 06:00
PROVIDERS: ADMIT Obstetrics & Gynecology Obstetrics; ATTEND Obstetrics & Gynecology Obstetrics
PROC: 3E0R3NZ Introduction of Analgesics, Hypnotics, Sedatives into Spinal Canal, Percutaneous Approach (ICD-10-PCS; principal; 2019-05-13)
PROC: 10E0XZZ Delivery of Products of Conception, External Approach (ICD-10-PCS; principal; 2019-05-13)
PROC: 0KQM0ZZ Repair Perineum Muscle, Open Approach (ICD-10-PCS; principal; 2019-05-13)
PROC: 00HU33Z Insertion of Infusion Device into Spinal Canal, Percutaneous Approach (ICD-10-PCS; principal; 2019-05-13)
PROC: 10907ZC Drainage of Amniotic Fluid, Therapeutic from Products of Conception, Via Natural or Artificial Opening (ICD-10-PCS; principal; 2019-05-13)
PROC: 3E033VJ Introduction of Other Hormone into Peripheral Vein, Percutaneous Approach (ICD-10-PCS; principal; 2019-05-13)
DX: O70.1 Second degree perineal laceration during delivery (principal); Z37.0 Single live birth; Z3A.39 39 weeks gestation of pregnancy; J45.909 Unspecified asthma, uncomplicated; O99.52 Diseases of the respiratory system complicating childbirth; Z79.899 Other long term (current) drug therapy
CPT/HCPCS: 85025; 86850; 86900; 86901

== ENCOUNTER → 2019-12-30 | Outpatient (CLI) | payer OTHER ==
--- NOTE | 2019-12-30 15:53 | US ---
EXAMINATION TYPE: US thyroid st tissue head/neck DATE OF EXAM: 12/30/2019 COMPARISON: US 03/24/18 CLINICAL HISTORY: E04.2 nontoxic multinodular goiter. Follow up GLAND SIZE: Right Lobe: 5.2 x 1.6 x 1.6 cm Overall Parenchyma: homogenous Left Lobe: 4.0 x 1.1 x 1.7 cm Overall Parenchyma: homogeneous Isthmus Thickness: 0.3 cm NODULES RIGHT: # of nodules measured on right: 1 1. 0.4 X 0.2 x 0.3 cm hypoechoic cystic nodule at the mid pole with well-defined margins. This nod ule is wider than tall and shows no intranodular vascularity. Prior size: 0.3 x 0.3 x 0.3 cm LEFT: # of nodules measured on left: 1 1. 0.4 X 0.2 x 0.5 cm hypoechoic cystic nodule at the lower pole with well-defined margins. This n odule is wider than tall and shows no intranodular vascularity. Prior size: 0.4 x 0.3 x 0.2 cm ISTHMUS: # of nodules measured in the isthmus: 0 Bilateral neck scanned, no evidence of lymphadenopathy. Homogeneous normal-sized thyroid with stable tiny bilateral nodules. No significant change from prior . IMPRESSION: As above. No new greater than 1 cm thyroid nodules identified.
== END | disposition home or self-care (01) ==
LOC: RADUSWWP 14:55
PROVIDERS: ATTEND Family Medicine
DX: E04.2 Nontoxic multinodular goiter (principal)
CPT/HCPCS: 76536

== ENCOUNTER → 2020-02-27 | Outpatient (CLI) | payer OTHER | END | disposition home or self-care (01) | LOC: LABWHC1 08:38 | PROVIDERS: ATTEND Internal Medicine Interventional Cardiology | DX: Z20.828 Contact with and (suspected) exposure to other viral communicable diseases (principal) | CPT/HCPCS: U0003; C9803 ==

== ENCOUNTER → 2020-08-17 | Outpatient (CLI) | payer OTHER ==
--- NOTE | 2020-08-17 12:56 | XR ---
EXAMINATION TYPE: XR Hip Complete LT DATE OF EXAM: 08/17/2020 COMPARISON: NONE HISTORY: 19-year-old female left hip pain for 2 weeks TECHNIQUE: 2 views FINDINGS: No acute fracture, subluxation, or dislocation. Hip joint space is maintained. No periostitis or oste olysis. IMPRESSION: No acute osseous abnormality seen. If symptoms persist and if clinically warranted, consider MRI.
== END | disposition home or self-care (01) ==
LOC: RADXRMAIN 12:30
PROVIDERS: ATTEND Physician Assistant
DX: M25.552 Pain in left hip (principal)
CPT/HCPCS: 73502

== ENCOUNTER 2020-11-19 16:37 | Emergency (ER) | payer OTHER ==
[2020-11-19 16:59] VITALS: RESP 18; TEMP 98.8
--- NOTE | 2020-11-19 17:31 | ED ---
General Adult HPI - General Chief complaint: Recheck/Abnormal Lab/Rx Stated complaint: poss DVT rt arm Source: patient, RN notes reviewed, old records reviewed Mode of arrival: ambulatory Limitations: physical limitation - History of Present Illness Initial comments: 20-year-old pleasant white female, presents to the emergency room, alert and oriented 4, with complaints of right arm aching since Sunday. She stated that she noticed that her right forearm seems swollen since Sunday. when she returned to work after a 5 day at home vacation, she had a coworker ultrasound her right arm and was told that she should come to the emergency room for evaluation of possible DVT. Patient states it is a dull ache in his is not relieved with rest. She states that it does radiate up to her right shoulder. She states that she's also felt some shortness of breath but no chest pain. She denies cough. She states that she is on DepoProvera and her last dose was given in August. She also takes Adderall. She also states that she does vape but does not smoke cigarettes. -: days(s) (6) Location: right, upper extremity Radiation: non-radiation Quality: aching Consistency: constant Improves with: none Worsens with: none Associated Symptoms: shortness of breath Treatments Prior to Arrival: none - Related Data Home Medications Medication Instructions Recorded Confirmed Dextroamphetamine/Amphetamine 30 mg PO BID 11/19/20 11/19/20 [Adderall] Medroxyprogesterone Acetate 150 mg IM Q90D 11/19/20 11/19/20 [Depo-Provera] Allergies Allergy/AdvReac Type Severity Reaction Status Date / Time No Known Allergies Allergy Verified 11/19/20 18:51 Review of Systems ROS Statement: Those systems with pertinent positive or pertinent negative responses have been documented in the HPI. ROS Other: All systems not noted in ROS Statement are negative. Past Medical History Past Medical History: Asthma Additional Past Medical History / Comment(s): TMJ History of Any Multi-Drug Resistant Organisms: None Reported Past Surgical History: Ear Surgery Additional Past Surgical History / Comment(s): "tubes in ears at 9 months old" Past Anesthesia/Blood Transfusion Reactions: No Reported Reaction Past Psychological History: Anxiety, Depression Smoking Status: Vaper Past Alcohol Use History: None Reported Past Drug Use History: None Reported - Past Family History Mother Family Medical History: Pneumonia General Exam Limitations: physical limitation General appearance: alert, in no apparent distress Head exam: Present: atraumatic, normocephalic, normal inspection Eye exam: Present: normal appearance, PERRL, EOMI. Absent: scleral icterus, conjunctival injection, periorbital swelling ENT exam: Present: normal exam, normal oropharynx, mucous membranes moist Neck exam: Present: normal inspection, full ROM. Absent: tenderness, me ningismus, lymphadenopathy Respiratory exam: Present: normal lung sounds bilaterally. Absent: respiratory distress, wheezes, rales, rhonchi, stridor, chest wall tenderness, accessory muscle use, decreased breath sounds, prolonged expiratory Cardiovascular Exam: Present: tachycardia, normal heart sounds. Absent: JVD GI/Abdominal exam: Present: soft, normal bowel sounds. Absent: distended, tenderness, guarding, rebound, rigid Extremities exam: Present: normal inspection, full ROM, normal capillary refill. Absent: tenderness, pedal edema, joint swelling, calf tenderness Right Upper Arm exam: Present: normal inspection, full ROM. Absent: tenderness, swelling Elbow exam: Present: normal inspection, full ROM. Absent: tenderness, swelling Forearm Wrist exam: Present: normal inspection, full ROM, tenderness. Absent: swelling, ecchymosis, deformity, crepitus, dislocation, erythema Hand Wrist exam: Present: normal inspection, full ROM. Absent: tenderness, swelling, laceration, ecchymosis, deformity, erythema, amputation Back exam: Present: normal inspection, full ROM. Absent: tenderness, CVA tenderness (R), CVA tenderness (L), muscle spasm, paraspinal tenderness, vertebral tenderness, rash noted Neurological exam: Present: alert, oriented X3, CN II-XII intact Psychiatric exam: Present: normal affect, normal mood Skin exam: Present: warm, dry, intact, normal color. Absent: rash, cyanosis, diaphoretic, erythema, petechiae, pallor, mottled Course Vital Signs 11/19/20 16:55 Temperature 98.8 F Pulse Rate 118 H Respiratory 18 Rate Blood Pressure 144/97 O2 Sat by Pulse 100 Oximetry EKG Findings - EKG Results: EKG: sinus rhythm EKG shows: tachycardia (Ventricular rate of 110, ND interval 0.146, QRS 0.78, QTC of 0.433) Medical Decision Making - Medical Decision Making Ultrasound is negative for DVT in the right upper extremity. Chest x-ray is negative for any cardiopulmonary process. WBC was 10.2, hemoglobin and hematocrit is 14 and 45 respectively, d-dimer is negative at 0.33, and troponin is negative at 0.012. Patient is active female well-appearing in no acute distress. Case discussed with Dr. Bey patient will be discharged home with follow-up with primary care doctor. - Lab Data Result diagrams: 11/19/20 17:57 11/19/20 17:57 Lab Results 11/19/20 11/19/20 11/19/20 Range/Units 17:57 17:57 17:57 WBC 10.2 (3.8-10.6) k/uL RBC 5.38 (3.80-5.40) m/uL Hgb 14.8 (11.4-16.0) gm/dL Hct 45.3 (34.0-46.0) % MCV 84.2 (80.0-100.0) fL MCH 27.5 (25.0-35.0) pg MCHC 32.7 (31.0-37.0) g/dL RDW 13.7 (11.5-15.5) % Plt Count 381 (150-450) k/uL MPV 7.4 Neutrophils % 65 % Lymphocytes % 25 % Monocytes % 5 % Eosinophils % 2 % Basophils % 1 % Neutrophils # 6.6 (1.3-7.7) k/uL Lymphocytes # 2.5 (1.0-4.8) k/uL Monocytes # 0.5 (0-1.0) k/uL Eosinophils # 0.2 (0-0.7) k/uL Basophils # 0.1 (0-0.2) k/uL PT 10.1 (9.0-12.0) sec INR 0.9 (<1.2) APTT 23.6 (22.0-30.0) sec D-Dimer 0.33 (<0.60) mg/L FEU Sodium 142 (137-145) mmol/L Potassium 3.7 (3.5-5.1) mmol/L Chloride 107 (98-107) mmol/L Carbon Dioxide 24 (22-30) mmol/L Anion Gap 11 mmol/L BUN 12 (7-17) mg/dL Creatinine 0.60 (0.52-1.04) mg/dL Est GFR (CKD-EPI)AfAm >90 (>60 ml/min/1.73 sqM) Est GFR (CKD-EPI)NonAf >90 (>60 ml/min/1.73 sqM) Glucose 83 (74-99) mg/dL Calcium 10.1 (8.4-10.2) mg/dL Magnesium 2.2 (1.6-2.3) mg/dL Total Bilirubin 0.5 (0.2-1.3) mg/dL AST 27 (14-36) U/L ALT 26 (4-34) U/L Alkaline Phosphatase 106 (38-126) U/L Troponin I (0.000-0.034) ng/mL Total Protein 8.1 (6.3-8.2) g/dL Albumin 4.9 (3.5-5.0) g/dL Urine Color Urine Appearance (Clear) Urine pH (5.0-8.0) Ur Specific [place] (1.001-1.035) Urine Protein (Negative) Urine Glucose (UA) (Negative) Urine Ketones (Negative) Urine Blood (Negative) Urine Nitrite (Negative) Urine Bilirubin (Negative) Urine Urobilinogen (<2.0) mg/dL Ur Leukocyte Esterase (Negative) Urine RBC (0-5) /hpf Urine WBC (0-5) /hpf Ur Squamous Epith Cells (0-4) /hpf Hyaline Casts (0-2) /lpf Urine Mucus (None) /hpf Urine HCG, Qual (Not Detectd) 11/19/20 11/19/20 11/19/20 Range/Units 17:57 18:05 18:05 WBC (3.8-10.6) k/uL RBC (3.80-5.40) m/uL Hgb (11.4-16.0) gm/dL Hct (34.0-46.0) % MCV (80.0-100.0) fL MCH (25.0-35.0) pg MCHC (31.0-37.0) g/dL RDW (11.5-15.5) % Plt Count (150-450) k/uL MPV Neutrophils % % Lymphocytes % % Monocytes % % Eosinophils % % Basophils % % Neutrophils # (1.3-7.7) k/uL Lymphocytes # (1.0-4.8) k/uL Monocytes # (0-1.0) k/uL Eosinophils # (0-0.7) k/uL Basophils # (0-0.2) k/uL PT (9.0-12.0) sec INR (<1.2) APTT (22.0-30.0) sec D-Dimer (<0.60) mg/L FEU Sodium (137-145) mmol/L Potassium (3.5-5.1) mmol/L Chloride (98-107) mmol/L Carbon Dioxide (22-30) mmol/L Anion Gap mmol/L BUN (7-17) mg/dL Creatinine (0.52-1.04) mg/dL Est GFR (CKD-EPI)AfAm (>60 ml/min/1.73 sqM) Est GFR (CKD-EPI)NonAf (>60 ml/min/1.73 sqM) Glucose (74-99) mg/dL Calcium (8.4-10.2) mg/dL Magnesium (1.6-2.3) mg/dL Total Bilirubin (0.2-1.3) mg/dL AST (14-36) U/L ALT (4-34) U/L Alkaline Phosphatase (38-126) U/L Troponin I <0.012 (0.000-0.034) ng/mL Total Protein (6.3-8.2) g/dL Albumin (3.5-5.0) g/dL Urine Color Yellow Urine Appearance Cloudy H (Clear) Urine pH 5.5 (5.0-8.0) Ur Specific [place] 1.035 (1.001-1.035) Urine Protein 1+ H (Negative) Urine Glucose (UA) Negative (Negative) Urine Ketones Negative (Negative) Urine Blood Moderate H (Negative) Urine Nitrite Negative (Negative) Urine Bilirubin Negative (Negative) Urine Urobilinogen 2.0 (<2.0) mg/dL Ur Leukocyte Esterase Small H (Negative) Urine RBC 46 H (0-5) /hpf Urine WBC 10 H (0-5) /hpf Ur Squamous Epith Cells 3 (0-4) /hpf Hyaline Casts 3 H (0-2) /lpf Urine Mucus Many H (None) /hpf Urine HCG, Qual Not Detected (Not Detectd) Disposition Clinical Impression: Arm pain Disposition: HOME SELF-CARE Condition: Good Additional Instructions: Follow-up with the primary care doctor in 1 week. Return if any worsening symptoms, pain or shortness of breath. Is patient prescribed a controlled substance at d/c from ED?: No Referrals: Conor Mancini MD [Primary Care Provider] - 1-2 days Time of Disposition: 21:29
[2020-11-19 18:08] LABS: Basophils # (A) 0.1 k/uL (0-0.2); Basophils % (A) 1 %; Eosinophils # (A) 0.2 k/uL (0-0.7); Eosinophils % (A) 2 %; HCT 45.3 % (34.0-46.0); HGB 14.8 gm/dL (11.4-16.0); Lymphocytes # (A) 2.5 k/uL (1.0-4.8); Lymphocytes % (A) 25 %; MCH 27.5 pg (25.0-35.0); MCHC 32.7 g/dL (31.0-37.0); MCV 84.2 fL (80.0-100.0); Mean Platelet Volume 7.4; Monocytes # (A) 0.5 k/uL (0-1.0); Monocytes % (A) 5 %; Neutrophils # (A) 6.6 k/uL (1.3-7.7); Neutrophils % (A) 65 %; Platelet Count 381 k/uL (150-450); RBC 5.38 m/uL (3.80-5.40); RDW 13.7 % (11.5-15.5); WBC 10.2 k/uL (3.8-10.6)
[2020-11-19 18:20] LABS: ALT 26 U/L (4-34); AST 27 U/L (14-36); African American GFR (CKD) >90 (>60 ml/min/1.73 sqM); Albumin 4.9 g/dL (3.5-5.0); Alkaline Phosphatase 106 U/L (38-126); Anion Gap 11 mmol/L; Blood Urea Nitrogen 12 mg/dL (7-17); Calcium 10.1 mg/dL (8.4-10.2); Carbon Dioxide 24 mmol/L (22-30); Chloride 107 mmol/L (98-107); Glucose 83 mg/dL (74-99); Magnesium 2.2 mg/dL (1.6-2.3); Non-African American GFR(CKD) >90 (>60 ml/min/1.73 sqM); Potassium 3.7 mmol/L (3.5-5.1); Sodium 142 mmol/L (137-145); Total Bilirubin 0.5 mg/dL (0.2-1.3); Total Protein 8.1 g/dL (6.3-8.2)
[2020-11-19 18:24] LABS: Appearance,Urine Cloudy (Clear); Bilirubin,Urine Negative (Negative); Blood,Urine Moderate (Negative); Color,Urine Yellow; Glucose,Urine (UA) Negative (Negative); Hyaline Casts,Urine 3 /lpf (0-2); Ketones,Urine Negative (Negative); Leukocyte Esterase,Urine Small (Negative); Mucus,Urine Many /hpf; Nitrite,Urine Negative (Negative); PH, Urine 5.5 (5.0-8.0); Protein,Urine 1+ (Negative); RBC,Urine 46 /hpf (0-5); Specific Gravity,Urine 1.035 (1.001-1.035); Squamous Epithelial Cell,Urine 3 /hpf (0-4); WBC,Urine 10 /hpf (0-5)
[2020-11-19 18:25] LABS: INR 0.9 (<1.2); Partial Thromboplastin Time 23.6 sec (22.0-30.0); Prothrombin Time 10.1 sec (9.0-12.0)
--- NOTE | 2020-11-19 19:30 | XR ---
EXAMINATION TYPE: XR chest 2V DATE OF EXAM: 11/19/2020 COMPARISON: 06/11/2016 HISTORY: Arm pain TECHNIQUE: FINDINGS: Heart and mediastinum are normal. Lungs are clear. Diaphragm is normal. Bony thorax appears normal. There are chest leads. IMPRESSION: Normal chest. No change
--- NOTE | 2020-11-19 20:56 | US ---
EXAMINATION TYPE: US venous doppler duplex UE RT DATE OF EXAM: 11/19/2020 COMPARISON: NONE CLINICAL HISTORY: swelling r/o dvt. swollen arm x 5 days, but patient said swelling has gone down by time of exam, she had US tech at her work scan her arm and thought she saw "issue" within forearm, no h/o dvt, no injury or recent IV site. SIDE PERFORMED: Right Right Arm: Negative for DVT and SVT IMPRESSION: No evidence of deep vein thrombosis in the right arm.
[2020-11-19 21:36] VITALS: BP 125/86; PULSE 85
== END 2020-11-19 21:36 | disposition home or self-care (01) ==
LOC: EC 16:37
DX: M79.601 Pain in right arm (principal); R06.02 Shortness of breath; J45.909 Unspecified asthma, uncomplicated; F32.9 Major depressive disorder, single episode, unspecified; F41.9 Anxiety disorder, unspecified; F17.290 Nicotine dependence, other tobacco product, uncomplicated
CPT/HCPCS: 36415; 71046; 80053; 81001; 81025; 83735; 84484; 85025; 85379; 85610; 85730; 93005; 99285

== ENCOUNTER 2021-03-09 18:43 | Emergency (ER) | payer OTHER ==
[2021-03-09 19:59] VITALS: BP 143/94; PULSE 101; RESP 20; TEMP 97.6
--- NOTE | 2021-03-09 20:55 | XR ---
EXAMINATION TYPE: XR tibia fibula RT DATE OF EXAM: 03/09/2021 COMPARISON: NONE HISTORY: Pain TECHNIQUE: 4 views FINDINGS: I see no fracture nor dislocation. Tibia and fibula appear intact. Knee joint and ankle stephany nt appear intact. IMPRESSION: Negative right tibia and fibula exam.
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
[2021-03-09] MEDS ORDERED: KETOROLAC 15 MG/ML 1 ML VIAL IM STA (21:04)
== END 2021-03-09 21:16 | disposition home or self-care (01) ==
LOC: EC 18:43
DX: S06.0X9A Concussion with loss of consciousness of unspecified duration, initial encounter (principal); M79.661 Pain in right lower leg; J45.909 Unspecified asthma, uncomplicated; F17.290 Nicotine dependence, other tobacco product, uncomplicated; V89.2XXA Person injured in unspecified motor-vehicle accident, traffic, initial encounter; Y92.410 Unspecified street and highway as the place of occurrence of the external cause
CPT/HCPCS: 73590; 72125; 70450; 99284; 96372; J1885

== ENCOUNTER 2021-06-04 14:22 | Emergency (ER) | payer OTHER ==
[2021-06-04] MEDS ORDERED: SODIUM CHLORIDE 0.9% 1,000 ML IV STA (14:48)
--- NOTE | 2021-06-04 14:51 | ED ---
General Adult HPI - General Chief complaint: Chest Pain Stated complaint: Chest pain,SOB Time Seen by Provider: 06/04/21 14:45 Source: patient, RN notes reviewed, old records reviewed Mode of arrival: ambulatory Limitations: no limitations - History of Present Illness Initial comments: Well-appearing 20-year-old female alert and oriented complains of sharp stabbing chest pain that started yesterday while at work and then throughout the day today is getting worse today. She states the pain is 6 out of 10. Denies any fevers or sick contacts. Denies any nausea vomiting or difficulty in breathing. She has never had pain like this in the past. She does have a history of asthma. She does vape. Denies chance of . No history of DVT. Oxygen saturation is 100% heart rate 107. -: days(s) (2) Location: chest Radiation: non-radiation Severity scale (1-10): 6 Quality: stabbing, sharp Consistency: constant Improves with: none Worsens with: none Associated Symptoms: denies other symptoms Treatments Prior to Arrival: none - Related Data Home Medications Medication Instructions Recorded Confirmed Dextroamphetamine/Amphetamine 30 mg PO BID@0700,1200 11/19/20 06/04/21 [Adderall] Medroxyprogesterone Acetate 150 mg IM Q84D 11/19/20 06/04/21 [Depo-Provera] Albuterol Sulfate [Ventolin HFA] 2 puff INHALATION RT-QID PRN 06/04/21 06/04/21 Allergies Allergy/AdvReac Type Severity Reaction Status Date / Time No Known Allergies Allergy Verified 06/04/21 16:24 Review of Systems ROS Statement: Those systems with pertinent positive or pertinent negative responses have been documented in the HPI. ROS Other: All systems not noted in ROS Statement are negative. Past Medical History Past Medical History: Asthma Additional Past Medical History / Comment(s): TMJ History of Any Multi-Drug Resistant Organisms: None Reported Past Surgical History: Ear Surgery Additional Past Surgical History / Comment(s): "tubes in ears at 9 months old" Past Anesthesia/Blood Transfusion Reactions: No Reported Reaction Past Psychological History: Anxiety, Depression Smoking Status: Vaper Past Alcohol Use History: None Reported Past Drug Use History: None Reported - Past Family History Mother Family Medical History: Pneumonia General Exam Limitations: no limitations General appearance: alert, in no apparent distress Eye exam: Present: normal appearance. Absent: scleral icterus, conjunctival injection Respiratory exam: Present: normal lung sounds bilaterally. Absent: respiratory distress, wheezes, rales, rhonchi, accessory muscle use, decreased breath sounds Cardiovascular Exam: Present: tachycardia, normal heart sounds. Absent: JVD GI/Abdominal exam: Present: soft. Absent: distended, tenderness Extremities exam: Present: normal inspection, normal capillary refill. Absent: pedal edema, calf tenderness Back exam: Present: normal inspection, full ROM. Absent: tenderness, CVA tenderness (R), CVA tenderness (L), rash noted Neurological exam: Present: alert, oriented X3 Psychiatric exam: Present: anxious Skin exam: Present: warm, dry, intact, normal color. 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 Oxygen saturations 100% on room air. Chest x-ray shows no acute cardiopulmonary process. No evidence of leukocytosis, hemoglobin and hematocrit are stable. Electrolytes are unremarkable. Troponin is 0.012 and EKG shows sinus tachycardia 108. Patient was offered a coronavirus swab and she declined she states that she had covid a couple of months ago. She states she is feeling better and is agreeable to being discharged home and following up with her primary care doctor next week. She was directed to return to the emergency room with any new or concerning symptoms. Case discussed with Dr. Camarillo. - Lab Data Result diagrams: 06/04/21 14:52 06/04/21 14:52 Lab Results 06/04/21 06/04/21 06/04/21 Range/Units 14:52 14:52 14:52 WBC 10.0 (3.8-10.6) k/uL RBC 4.91 (3.80-5.40) m/uL Hgb 13.9 (11.4-16.0) gm/dL Hct 42.3 (34.0-46.0) % MCV 86.2 (80.0-100.0) fL MCH 28.4 (25.0-35.0) pg MCHC 32.9 (31.0-37.0) g/dL RDW 13.8 (11.5-15.5) % Plt Count 339 (150-450) k/uL MPV 7.2 Neutrophils % 72 % Lymphocytes % 20 % Monocytes % 4 % Eosinophils % 1 % Basophils % 1 % Neutrophils # 7.2 (1.3-7.7) k/uL Lymphocytes # 2.0 (1.0-4.8) k/uL Monocytes # 0.4 (0-1.0) k/uL Eosinophils # 0.1 (0-0.7) k/uL Basophils # 0.1 (0-0.2) k/uL PT 10.1 (9.0-12.0) sec INR 0.9 (<1.2) APTT 24.2 (22.0-30.0) sec D-Dimer 0.40 (<0.60) mg/L FEU Sodium 139 (137-145) mmol/L Potassium 3.7 (3.5-5.1) mmol/L Chloride 108 H (98-107) mmol/L Carbon Dioxide 24 (22-30) mmol/L Anion Gap 7 mmol/L BUN 13 (7-17) mg/dL Creatinine 0.60 (0.52-1.04) mg/dL Est GFR (CKD-EPI)AfAm >90 (>60 ml/min/1.73 sqM) Est GFR (CKD-EPI)NonAf >90 (>60 ml/min/1.73 sqM) Glucose 89 (74-99) mg/dL Calcium 9.1 (8.4-10.2) mg/dL Magnesium 1.9 (1.6-2.3) mg/dL Total Bilirubin 0.5 (0.2-1.3) mg/dL AST 21 (14-36) U/L ALT 23 (4-34) U/L Alkaline Phosphatase 85 (38-126) U/L Troponin I (0.000-0.034) ng/mL Total Protein 6.7 (6.3-8.2) g/dL Albumin 3.8 (3.5-5.0) g/dL 06/04/21 Range/Units 14:52 WBC (3.8-10.6) k/uL RBC (3.80-5.40) m/uL Hgb (11.4-16.0) gm/dL Hct (34.0-46.0) % MCV (80.0-100.0) fL MCH (25.0-35.0) pg MCHC (31.0-37.0) g/dL RDW (11.5-15.5) % Plt Count (150-450) k/uL MPV Neutrophils % % Lymphocytes % % Monocytes % % Eosinophils % % Basophils % % Neutrophils # (1.3-7.7) k/uL Lymphocytes # (1.0-4.8) k/uL Monocytes # (0-1.0) k/uL Eosinophils # (0-0.7) k/uL Basophils # (0-0.2) k/uL PT (9.0-12.0) sec INR (<1.2) APTT (22.0-30.0) sec D-Dimer (<0.60) mg/L FEU Sodium (137-145) mmol/L Potassium (3.5-5.1) mmol/L Chloride (98-107) mmol/L Carbon Dioxide (22-30) mmol/L Anion Gap mmol/L BUN (7-17) mg/dL Creatinine (0.52-1.04) mg/dL Est GFR (CKD-EPI)AfAm (>60 ml/min/1.73 sqM) Est GFR (CKD-EPI)NonAf (>60 ml/min/1.73 sqM) Glucose (74-99) mg/dL Calcium (8.4-10.2) mg/dL Magnesium (1.6-2.3) mg/dL Total Bilirubin (0.2-1.3) mg/dL AST (14-36) U/L ALT (4-34) U/L Alkaline Phosphatase (38-126) U/L Troponin I <0.012 (0.000-0.034) ng/mL Total Protein (6.3-8.2) g/dL Albumin (3.5-5.0) g/dL Disposition Clinical Impression: Chest pain Disposition: HOME SELF-CARE Condition: Good Instructions (If sedation given, give patient instructions): Chest Pain (ED) Additional Instructions: Follow-up with your primary care doctor next week and return to the emergency room with any new or concerning symptoms. Is patient prescribed a controlled substance at d/c from ED?: No Referrals: Conor Mancini MD [Primary Care Provider] - 1-2 days Time of Disposition: 16:36
[2021-06-04 15:14] LABS: ALT 23 U/L (4-34); AST 21 U/L (14-36); African American GFR (CKD) >90 (>60 ml/min/1.73 sqM); Albumin 3.8 g/dL (3.5-5.0); Alkaline Phosphatase 85 U/L (38-126); Anion Gap 7 mmol/L; Blood Urea Nitrogen 13 mg/dL (7-17); Calcium 9.1 mg/dL (8.4-10.2); Carbon Dioxide 24 mmol/L (22-30); Chloride 108 mmol/L (98-107); Glucose 89 mg/dL (74-99); Magnesium 1.9 mg/dL (1.6-2.3); Non-African American GFR(CKD) >90 (>60 ml/min/1.73 sqM); Potassium 3.7 mmol/L (3.5-5.1); Sodium 139 mmol/L (137-145); Total Bilirubin 0.5 mg/dL (0.2-1.3); Total Protein 6.7 g/dL (6.3-8.2)
[2021-06-04 15:17] LABS: Basophils # (A) 0.1 k/uL (0-0.2); Basophils % (A) 1 %; Eosinophils # (A) 0.1 k/uL (0-0.7); Eosinophils % (A) 1 %; HCT 42.3 % (34.0-46.0); HGB 13.9 gm/dL (11.4-16.0); Lymphocytes % (A) 20 %; MCH 28.4 pg (25.0-35.0); MCHC 32.9 g/dL (31.0-37.0); MCV 86.2 fL (80.0-100.0); Mean Platelet Volume 7.2; Monocytes # (A) 0.4 k/uL (0-1.0); Monocytes % (A) 4 %; Neutrophils # (A) 7.2 k/uL (1.3-7.7); Neutrophils % (A) 72 %; Platelet Count 339 k/uL (150-450); RBC 4.91 m/uL (3.80-5.40); RDW 13.8 % (11.5-15.5)
[2021-06-04 15:21] LABS: INR 0.9 (<1.2); Partial Thromboplastin Time 24.2 sec (22.0-30.0); Prothrombin Time 10.1 sec (9.0-12.0)
--- NOTE | 2021-06-04 16:10 | XR ---
EXAMINATION TYPE: XR chest 2V DATE OF EXAM: 06/04/2021 COMPARISON: Radiograph 11/19/2020 HISTORY: Chest pain. TECHNIQUE: Frontal and lateral views of the chest are obtained. FINDINGS: There is no focal air space opacity, pleural effusion, or pneumothorax seen. The cardiac silhouette size is within normal limits. The osseous structures are intact. IMPRESSION: No acute cardiopulmonary process.
[2021-06-04 16:50] VITALS: BP 149/102; PULSE 80; RESP 18; TEMP 97.8
== END 2021-06-04 16:48 | disposition home or self-care (01) ==
LOC: EC 14:22
DX: R07.9 Chest pain, unspecified (principal); J45.909 Unspecified asthma, uncomplicated; F32.A Depression, unspecified; F41.9 Anxiety disorder, unspecified; F17.290 Nicotine dependence, other tobacco product, uncomplicated; Z79.51 Long term (current) use of inhaled steroids; Z79.899 Other long term (current) drug therapy
CPT/HCPCS: 36415; 71046; 80053; 83735; 84484; 85025; 85379; 85610; 85730; 93005; 96360; 99285